=== PATIENT | female | born 1980 ===

== ENCOUNTER 2017-12-16 02:06 | Emergency (ER) | payer MEDICAID ==
[2017-12-16 04:06] VITALS: BP 115/75; PULSE 65; RESP 16; TEMP 98; O2SAT 98
--- NOTE | 2017-12-16 04:52 | C.PDOC ---
History Of Present Illness 37 year old female presents to ED with complaints of multiple complaints and has a past medical history of vertigo with 2 episodes in September 2017 and chronic neck pain. (+) chest pain, tingling sensation in upper/lower extremities , dizziness, and SOB. Notes that she is currently asymptomatic in the ED. Patient follows up at [facility] in [facility]. Time Seen by Provider: 12/16/17 03:38 Chief Complaint (Nursing): Chest Pain History Per: Patient History/Exam Limitations: no limitations Current Symptoms Are (Timing): Gone Severity: Mild Past Medical History Reviewed: Historical Data, Nursing Documentation, Vital Signs Vital Signs: Last Vital Signs Temp 98 F 12/16/17 04:03 Pulse 65 12/16/17 04:03 Resp 16 12/16/17 04:03 BP 115/75 12/16/17 04:03 Pulse Ox 98 12/16/17 06:47 - Medical History PMH: Anemia, Anxiety, Chronic Pain (chronic neck pain) Other PMH: vertigo Surgical History: No Surg Hx Family History: States: No Known Family Hx - Social History Hx Tobacco Use: No Hx Alcohol Use: No Hx Substance Use: No Review Of Systems Except As Marked, All Systems Reviewed And Found Negative. Cardiovascular: Positive for: Chest Pain Respiratory: Positive for: Shortness of Breath Neurological: Positive for: Numbness (tingling sensation in upper and lower extremities), Dizziness Physical Exam - Physical Exam Appears: No Acute Distress, In Acute Distress Skin: Normal Color, Warm, Dry Head: Atraumatic Eye(s): bilateral: Normal Inspection, PERRL, EOMI Nose: Normal Throat: Normal Neck: Normal Cardiovascular: Rhythm Regular Respiratory: Normal Breath Sounds Gastrointestinal/Abdominal: Normal Exam, Soft, No Tenderness Back: Normal Inspection Extremity: Normal ROM Neurological/Psych: Oriented x3, Normal Speech, Normal Cognition, Normal Cranial Nerves, Cerebellar Signs, Normal Motor, Normal Sensation ED Course And Treatment ECG: Interpreted By Me, Viewed By Me ECG Rhythm: Sinus Rhythm ECG Interpretation: No Acute Changes (no ischemic changes) Rate From EC O2 Sat by Pulse Oximetry: 98 (RA) Pulse Ox Interpretation: Normal Medical Decision Making Medical Decision Makin Initial plan: Offered Naproxen and Valium x3 days for muscle spasm associated with possible nerve impingement. Patient agrees with discharge plan. EKG UNREMARKABLE. LOW RISK ATYPICAL CHEST PAIN. ASYMPTOMATIC HERE . Disposition Counseled Patient/Family Regarding: Diagnosis - Disposition Referrals: [facility] [Outside] [facility] [Outside] [facility] [place] [Outside] Disposition: HOME/ ROUTINE Disposition Time: 14:14 Condition: GOOD Additional Instructions: return if symptoms worsen Prescriptions: Diazepam [Valium] 2 mg PO HS 3 Days #3 tablet Naproxen [Naprosyn] 500 mg PO BID 5 Days #10 tablet Forms: General Discharge Instructions, [facility]) - POA Core Measure Indicators: Chest Pain - Clinical Impression Clinical Impression: Vertigo, Chest discomfort
--- NOTE | 2017-12-17 16:06 | CARD ---
APPROVED REPORT EKG Measurement Heart [id number] <Conclusion> Normal sinus rhythm Normal ECG
== END 2017-12-16 04:06 | disposition home or self-care (01) ==
LOC: C.ER 02:06
DX: R42 Dizziness and giddiness (principal); R07.9 Chest pain, unspecified